=== PATIENT | female | born 1950 | race Caucasian/White ===

== ENCOUNTER 2017-03-16 10:20 | Emergency (ER) | payer OTHER ==
[~2017-03-16] VITALS: Ht 154.9 cm; Wt 81.6 kg
[~2017-03-16 10:20] MED LIST: ADULT LOW STREN81 M3 PO; ATENOLOL/CHLOR1 EAC2 PO; AVANDIA4 MG PO; LIPITOR5 MG PO
[2017-03-16] MEDS ORDERED: NAPROSYN250 MG PO (12:03)
[2017-03-16 12:19] VITALS: BP 130/66
== END 2017-03-16 12:21 | disposition home or self-care (01) ==
LOC: EME 10:20
DX: M25.461 Effusion, right knee (principal); I10 Essential (primary) hypertension; E78.5 Hyperlipidemia, unspecified; E11.9 Type 2 diabetes mellitus without complications
CPT/HCPCS: 73564; 99281; 99284

== ENCOUNTER 2017-11-01 14:55 | Inpatient (IN) | payer OTHER ==
[~2017-11-01] VITALS: Ht 154.9 cm; Wt 82.5 kg
[~2017-11-01 14:55] MED LIST changes: -ADULT LOW STREN81 M3 PO; +LO-DOSE ASPIRIN81 M2 PO; +NAPROSYN250 MG PO
[2017-11-01 15:34] LABS: BASOPHIL (%) 0.2 % (0-1); EOSINOPHIL (%) 0 % (0-5); HEMATOCRIT 37.5 % (36.0-46.0); IMMATURE GRANULOCYTE (%) 0.7 % (0.0-0.7); LYMPHOCYTE (%) 7.5 % (15-42); LYMPHOCYTE COUNT 1.2 K/uL (1.0-2.8); MCHC 34.7 G/DL (30.0-36.0); MCV 86.6 FL (83-99); MONOCYTE (%) 9.2 % (3-12); MONOCYTE COUNT 1.5 K/uL (0-0.8); NEUTROPHIL (%) 82.4 % (45-76); NEUTROPHIL COUNT 13.6 K/uL (1.8-6.4); PLATELET COUNT 197 K/uL (156-360); RBC DIS.WIDTH-CV 12.2 % (11.8-14.6); RBC DIS.WIDTH-SD 39.4 % (39-53); RED BLOOD COUNT 4.33 M/uL (3.80-5.20); WHITE BLOOD COUNT 16.6 K/uL (4.1-10.2)
[2017-11-01 15:50] LABS: ALBUMIN 3.7 g/dL (3.2-4.8)
[2017-11-01 15:51] LABS: CHLORIDE 92 mEq/L (99-109); POTASSIUM 2.9 mEq/L (3.7-5.4); SODIUM 135 mEq/L (136-147)
[2017-11-01 15:53] LABS: GLUCOSE 162 mg/dL (70-99); TOTAL PROTEIN 7.2 g/dL (6.4-8.3)
[2017-11-01 15:55] LABS: TOTAL BILIRUBIN 1.6 mg/dL (0.0-1.0)
[2017-11-01 15:56] LABS: ALKALINE PHOSPHATASE 76 IU/L (3-129)
[2017-11-01 15:57] LABS: CREATININE 0.9 mg/dL (0.6-1.3); GFR ESTIMATE (CALCULATED) > 59 mL/min/
[2017-11-01 15:58] LABS: AST (GOT) 14 IU/L (2-34); UREA NITROGEN (BUN) 23 mg/dL (9-23)
[2017-11-01 15:59] LABS: ALT (GPT) 17 IU/L (3-49)
[2017-11-01 16:00] LABS: URIC ACID 8.9 mg/dL (3.1-9.2)
[2017-11-01 19:17] LABS: RED CELL COUNT 13000 /MM^3 (0-1); WHITE CELL COUNT 30250 /MM^3 (0-200.0)
[2017-11-01 19:19] LABS: MONONUCLEAR WBC'S 2 %; POLYNUCLEAR WBC'S 98 % (0-25); SYNOVIAL FLUID EOSINOPHILS 0 % (0-25)
[2017-11-01] MEDS ORDERED: CHLORTHALIDONE25 MG PO (20:45)
[2017-11-01] MEDS ORDERED: GLIMEPIRIDE2 MG PO (20:46)
[2017-11-01] MEDS ORDERED: AMLODIPINE BESY10 MG PO (20:47)
[2017-11-01] MEDS ORDERED: ATENOLOL100 MG PO (20:47)
[2017-11-01] MEDS ORDERED: GABAPENTIN100 MG PO (20:47)
[2017-11-01] MEDS ORDERED: LOVASTATIN20 MG PO (20:48)
[2017-11-01] MEDS ORDERED: TENORETIC 501 TABLET PO (20:48)
[2017-11-01 23:06] VITALS: BP 160/70
[2017-11-02 03:00] VITALS: BP 148/84
[2017-11-02 04:37] LABS: HEMOGLOBIN 11.2 G/DL (11.9-15.5); MCH 29.7 PG (29.0-34.0); MCHC 33.9 G/DL (30.0-36.0); MCV 87.5 FL (83-99); RBC DIS.WIDTH-CV 12.4 % (11.8-14.6); RBC DIS.WIDTH-SD 39.5 % (39-53); RED BLOOD COUNT 3.77 M/uL (3.80-5.20); WHITE BLOOD COUNT 10.8 K/uL (4.1-10.2)
[2017-11-02 04:53] LABS: CHLORIDE 100 mEq/L (99-109); POTASSIUM 3.2 mEq/L (3.7-5.4); SODIUM 137 mEq/L (136-147)
[2017-11-02 04:56] LABS: GLUCOSE 83 mg/dL (70-99)
[2017-11-02 04:59] LABS: CREATININE 0.7 mg/dL (0.6-1.3); GFR ESTIMATE (CALCULATED) > 59 mL/min/
[2017-11-02 05:00] LABS: UREA NITROGEN (BUN) 19 mg/dL (9-23)
[2017-11-02 05:40] LABS: PLAT.SUFFICIENCY ADEQUATE; PLATELET COUNT 172 K/uL (156-360)
[2017-11-02 08:25] VITALS: BP 161/69
[2017-11-02 12:08] VITALS: BP 134/77
[2017-11-02 16:30] VITALS: BP 173/69
[2017-11-02 19:47] VITALS: BP 168/73
[2017-11-03 01:00] VITALS: BP 160/68
[2017-11-03 05:55] VITALS: BP 150/67
[2017-11-03 08:03] VITALS: BP 155/72
[2017-11-03 08:20] LABS: HEMATOCRIT 34.3 % (36.0-46.0); HEMOGLOBIN 11.4 G/DL (11.9-15.5); MCH 29.7 PG (29.0-34.0); MCHC 33.2 G/DL (30.0-36.0); MCV 89.3 FL (83-99); RBC DIS.WIDTH-CV 12.6 % (11.8-14.6); RBC DIS.WIDTH-SD 40.9 % (39-53); RED BLOOD COUNT 3.84 M/uL (3.80-5.20); WHITE BLOOD COUNT 9.7 K/uL (4.1-10.2)
[2017-11-03 08:45] LABS: PLAT.SUFFICIENCY ADEQUATE; PLATELET COUNT 199 K/uL (156-360)
[2017-11-03 08:51] LABS: CHLORIDE 101 MEQ/L (99-109); CREATININE 0.6 MG/DL (0.6-1.3); GFR ESTIMATE (CALCULATED) > 59 mL/min/; POTASSIUM 3.7 MEQ/L (3.7-5.4); SODIUM 137 MEQ/L (136-147); UREA NITROGEN (BUN) 20 mg/dL (9-23)
[2017-11-03 08:59] LABS: GLUCOSE 134 mg/dL (70-99)
[2017-11-03 15:49] VITALS: BP 148/72
[2017-11-03 23:00] VITALS: BP 150/80
[2017-11-03 23:52] VITALS: BP 175/78
[2017-11-04] VITALS: BP 150/80
[2017-11-04 07:20] VITALS: BP 184/81
[2017-11-04 09:00] VITALS: BP 157/71
[2017-11-04 09:40] LABS: HEMOGLOBIN 12.1 G/DL (11.9-15.5); MCH 28.7 PG (29.0-34.0); MCHC 32.7 G/DL (30.0-36.0); MCV 87.9 FL (83-99); PLATELET COUNT 237 K/uL (156-360); RBC DIS.WIDTH-CV 12.4 % (11.8-14.6); RBC DIS.WIDTH-SD 39.8 % (39-53); RED BLOOD COUNT 4.21 M/uL (3.80-5.20); WHITE BLOOD COUNT 9.6 K/uL (4.1-10.2)
[2017-11-04] MEDS ORDERED: TRAMADOL HCL50 MG PO (11:27)
[2017-11-04] MEDS ORDERED: PRINIVIL10 MG PO (11:36)
== END 2017-11-04 14:06 | DRG 550 ==
LOC: EME 14:55 → 3EAST 21:26 → EDOF 21:26 → ENRESERV 21:28 → 3EAST 22:50
PROVIDERS: Emergency Medicine; Hospitalist; Physician Assistant
PROC: 0S9G3ZZ Drainage of Left Ankle Joint, Percutaneous Approach (ICD-10-PCS; principal; 2017-11-01)
DX: M00.9 Pyogenic arthritis, unspecified (principal); E87.6 Hypokalemia; I10 Essential (primary) hypertension; E78.5 Hyperlipidemia, unspecified; E11.9 Type 2 diabetes mellitus without complications; M25.572 Pain in left ankle and joints of left foot; M19.90 Unspecified osteoarthritis, unspecified site; E66.9 Obesity, unspecified; Z79.899 Other long term (current) drug therapy; Z68.34 Body mass index [BMI] 34.0-34.9, adult; Z79.82 Long term (current) use of aspirin; Z79.84 Long term (current) use of oral hypoglycemic drugs; Z83.3 Family history of diabetes mellitus
CPT/HCPCS: 73610; 80048; 80053; 80202; 82948; 84550; 85025; 85027; 87040; 87070; 87075; 87205; 89051; 89060; 93971; 97530 GP; 99281; 99285; J0696; J1644; J3370; J3480; J7030